=== PATIENT | female | born 1980 | race Caucasian/White ===

== ENCOUNTER 2017-07-22 17:48 | Emergency (ER) | payer MEDICAID ==
[2017-07-22] MEDS: HYDROCODONE/APAP (5/325) TAB PO (18:21)
== END 2017-07-22 20:43 | disposition home or self-care (01) ==
LOC: FTE 17:48
DX: S49.91XA Unspecified injury of right shoulder and upper arm, initial encounter (principal); S39.92XA Unspecified injury of lower back, initial encounter; W18.39XA Other fall on same level, initial encounter; Y92.9 Unspecified place or not applicable
CPT/HCPCS: 72100; 73090-RT; 81025; 99284-25

== ENCOUNTER 2018-01-02 18:24 | Emergency (ER) | payer MEDICAID | END 2018-01-02 21:12 | disposition home or self-care (01) | LOC: FTE 18:24 | DX: N89.8 Other specified noninflammatory disorders of vagina (principal) | CPT/HCPCS: 99282; Z7502 ==

== ENCOUNTER 2018-08-15 13:54 | Emergency (ER) | payer MEDICAID | END 2018-08-15 15:35 | disposition home or self-care (01) | LOC: FTE 13:54 | DX: R05 Cough (principal) | CPT/HCPCS: 99283; Z7502 ==